=== PATIENT | female | born 1985 | race Two or more races ===

== ENCOUNTER 2016-04-12 22:28 | Emergency (ER) | payer SELFPAY ==
[~2016-04-12] VITALS: Ht 177.8 cm; Wt 58.1 kg
[2016-04-12 22:58] VITALS: BP 127/82
[2016-04-12 23:29] LABS: APPEARANCE,URINE SLIGHTLY CLOUDY; KETONES,URINE 1+ (NEGATIVE); LEUKOCYTE ESTERASE ,URINE 1+ (NEGATIVE); NITRITE,URINE NEGATIVE (NEGATIVE); PH,URINE 5 (4.5-8.0); PROTEIN,URINE 2+ (NEGATIVE); UROBILINOGEN,URINE 1 MG/DL (0.0-1.0)
[2016-04-12 23:30] LABS: BASOPHILS % (AUTO) 1.8 % (0.0-2.0); EOSINOPHILS % (AUTO) 1.2 % (0.0-3.0); LYMPHOCYTES % (AUTO) 33.3 % (20.0-45.0); MEAN CORPUSCULAR HEMOGLOBIN 30.4 PG (27.0-31.0); MEAN CORPUSCULAR HGB CONC 33.6 G/DL (32.0-36.0); MEAN CORPUSCULAR VOLUME 90 FL (80-99); MEAN PLATELET VOLUME 7.7 FL (6.5-10.1); MONOCYTES % (AUTO) 8.5 % (1.0-10.0); NEUTROPHILS % (AUTO) 55.2 % (45.0-75.0); PLATELET COUNT 249 K/UL (150-450); RED BLOOD COUNT 5.02 M/UL (4.20-5.40); RED CELL DISTRIBUTION WIDTH 11.5 % (11.6-14.8); WHITE BLOOD COUNT 6.1 K/UL (4.8-10.8)
[2016-04-12 23:39] LABS: RBC,URINE 0-2 /HPF (0 - 2)
[2016-04-12 23:40] LABS: BACTERIA,URINE MODERATE /HPF; MUCUS,URINE MANY /LPF (NONE/OCC); SQUAMOUS EPITHELIAL CELL,UR FEW /LPF (NONE/OCC)
[2016-04-12 23:42] LABS: ALANINE AMINOTRANSFERASE 13 U/L (3-33); ALBUMIN/GLOBULIN RATIO 1.8 (1.0-2.7); ANION GAP 13 (5-15); ASPARTATE AMINO TRANSFERASE 19 U/L (5-40); CALCIUM 9.3 mg/dL (8.6-10.2); CARBON DIOXIDE 28 mEQ/L (20-30); CHLORIDE 96 mEQ/L (98-107); CREATININE 0.9 mg/dL (0.5-0.9); GLOMERULAR FILTRATION RATE > 60 mL/min (>60); HEMOLYSIS 4; LIPASE 25 U/L (< 60); POTASSIUM 3.8 mEQ/L (3.4-4.9); SODIUM 137 mEQ/L (135-145); TOTAL PROTEIN 7.4 g/dL (6.6-8.7)
[2016-04-13] MEDS ORDERED: DOXYCYCLINE MO100 MG ORAL (00:56)
[2016-04-13] MEDS ORDERED: METRONIDAZOLE500 MG ORAL (00:56)
[2016-04-13 01:00] VITALS: BP 118/73
[2016-04-13 01:05] VITALS: BP 118/73
--- NOTE | 2016-04-13 01:36 | Emergency Room Report ---
History of Present Illness General Chief Complaint: General Complaint Source: Patient Present Illness HPI Patient presents with complaints of vaginal discharge Patient reports that she was at the urgent care earlier today She does present with a letter with further medical input Patient was over the past one month has been having vaginal discharge increased foul smell She reports that recently she also found a retained tampon which she removed Patient denies any back or flank pain Reports having suprapubic discomfort with bilateral pain in that region Patient states that she has as history of lupus , crest syndrome Has had difficulty following up with primary physician at this time secondary to insurance purposes Patient reports that initially she has been sexually active with one partner however there was recent question of other contact by the partner therefore the concern for STD patient reports being checked for GC and Chlamydia, patient also reports check for BV At this time given the vaginal discharge any pelvic discomfort, patient's letter from the urgent care reports concern of possible tubo-ovarian abscess Allergies: Coded Allergies: No Known Allergies (Unverified , 04/12/16) Patient History Past Medical History: see triage record Pertinent Family History: none Last Menstrual Period: 03/22/16 Now: No Reviewed Nursing Documentation: PMH: Agreed, PSxH: Agreed Nursing Documentation-PMH Past Medical History: No History, Except For Hx Hypertension: Yes Hx Cerebrovascular Accident: Yes - 2003 Hx Seizures: Yes - Dec 2015 Review of Systems All Other Systems: negative except mentioned in HPI Physical Exam Vital Signs Date Time Temp Pulse Resp B/P Pulse Ox O2 Delivery O2 Flow Rate FiO2 04/12/16 22:37 97.9 102 16 122/86 99 Room Air Sp02 EP Interpretation: reviewed, normal General Appearance: well appearing, no apparent distress Head: normocephalic, atraumatic Eyes: bilateral eye EOMI, bilateral eye PERRL ENT: hearing grossly normal, normal pharynx, TMs + canals normal, uvula midline Neck: full range of motion, supple, no meningismus, no bony tend Respiratory: lungs clear, normal breath sounds, no rhonchi, no respiratory distress, no retraction, no accessory muscle use Cardiovascular #1: normal peripheral pulses, regular rate, rhythm, no edema, no gallop, no JVD, no murmur Gastrointestinal: normal bowel sounds, non tender, soft, no mass, no organomegaly, non-distended, no guarding, no hernia, no pulsatile mass, no rebound Genitourinary: no CVA tenderness, other - Patient refusing pelvic exam Musculoskeletal: normal inspection Neurologic: oriented x3, responsive, bank worker III-XII nml as tested, motor strength/ tone normal, sensory intact Psychiatric: mood/affect normal Skin: normal color, no rash, warm/dry, palpation normal Lymphatic: normal inspection, no adenopathy Medical Decision Making Diagnostic Impression: Primary Impression: vaginal discharge Additional Impression: PID ER Course And the patient's presentation and exam multiple differentials are considered Patient is complex requiring blood work and imaging Pelvic ultrasound revealed evidence of polycystic ovarian disease, no obvious abscess or free fluid Patient's blood work is at baseline levels Urine sample did show few bacteria At this time given the discharge and the discomfort I felt that a pelvic exam was also standard of care at this time, however the patient states that she had one performed at the urgent care and has had previous ones and is refusing that at this time She is aware that if there is any retained body or other pathology nurse practitioner adult to worsening symptoms and she is refusing that exam at this time Given the clinical history and findings given the ultrasound finding today patient will be treated for possible PID, she reports that she has an appointment with her OB physician tomorrow and I encouraged her to keep that appointment. She did voice concern however over the possible pricing of her referral and states that the likely cost over $1500. I did encourage her for appropriate followup Labs Test 04/12/16 23:21 White Blood Count 6.1 K/UL (4.8-10.8) Red Blood Count 5.02 M/UL (4.20-5.40) Hemoglobin 15.2 G/DL (12.0-16.0) Hematocrit 45.3 % (37.0-47.0) Mean Corpuscular Volume 90 FL (80-99) Mean Corpuscular Hemoglobin 30.4 PG (27.0-31.0) Mean Corpuscular Hemoglobin Concent 33.6 G/DL (32.0-36.0) Red Cell Distribution Width 11.5 % (11.6-14.8) Platelet Count 249 K/UL (150-450) Mean Platelet Volume 7.7 FL (6.5-10.1) Neutrophils (%) (Auto) 55.2 % (45.0-75.0) Lymphocytes (%) (Auto) 33.3 % (20.0-45.0) Monocytes (%) (Auto) 8.5 % (1.0-10.0) Eosinophils (%) (Auto) 1.2 % (0.0-3.0) Basophils (%) (Auto) 1.8 % (0.0-2.0) Urine Color Yellow Urine Appearance Slightly cloudy Urine pH 5 (4.5-8.0) Urine Specific [place] 1.025 (1.005-1.035) Urine Protein 2+ (NEGATIVE) Urine Glucose (UA) Negative (NEGATIVE) Urine Ketones 1+ (NEGATIVE) Urine Occult Blood 1+ (NEGATIVE) Urine Nitrite Negative (NEGATIVE) Urine Bilirubin Negative (NEGATIVE) Urine Urobilinogen 1 MG/DL (0.0-1.0) Urine Leukocyte Esterase 1+ (NEGATIVE) Urine RBC 0-2 /HPF (0 - 2) Urine WBC 5-10 /HPF (0 - 2) Urine Squamous Epithelial Cells Few /LPF (NONE/OCC) Urine Bacteria Moderate /HPF (NONE) Urine Mucus Many /LPF (NONE/OCC) Urine HCG, Qualitative Negative Sodium Level 137 mEQ/L (135-145) Potassium Level 3.8 mEQ/L (3.4-4.9) Chloride Level 96 mEQ/L (98-107) Carbon Dioxide Level 28 mEQ/L (20-30) Anion Gap 13 (5-15) Blood Urea Nitrogen 8 mg/dL (7-23) Creatinine 0.9 mg/dL (0.5-0.9) Estimat Glomerular Filtration Rate > 60 mL/min (>60) Glucose Level 94 mg/dL (74-106) Calcium Level 9.3 mg/dL (8.6-10.2) Total Bilirubin 0.4 mg/dL (0.0-1.2) Aspartate Amino Transf (AST/SGOT) 19 U/L (5-40) Alanine Aminotransferase (ALT/SGPT) 13 U/L (3-33) Alkaline Phosphatase 114 U/L (35-104) Total Protein 7.4 g/dL (6.6-8.7) Albumin 4.8 g/dL (3.5-5.2) Globulin 2.6 g/dL Albumin/Globulin Ratio 1.8 (1.0-2.7) Lipase 25 U/L (< 60) CT/MRI/US Diagnostic Results CT/MRI/US Diagnostic Results : Impression Pelvic ultrasound: No free fluid, polycystic ovary disease Last Vital Signs Date Time Temp Pulse Resp B/P Pulse Ox O2 Delivery O2 Flow Rate FiO2 04/12/16 22:58 97.8 98 15 127/82 99 Room Air Status: improved Disposition: HOME, SELF-CARE Condition: Improved Scripts Metronidazole* (FLAGYL*) 500 Mg Tablet 500 MG ORAL TID, #21 TAB Prov: JANEY CUELLO D.O. 04/13/16 Doxycycline Monohydrate* (DOXYCYCLINE MONOHYDRATE*) 100 Mg Capsule 100 MG ORAL Q12H, #14 CAP 0 Refills Prov: JANEY CUELLO D.O. 04/13/16 Referrals: NOT CHOSEN [facility]/,REFERRING (PCP) Patient Instructions: Pelvic Inflammatory Disease Additional Instructions: Given your diagnosis and the other differentials, pelvic exam is indicated in the emergency room. However you stated that you had one earlier today, and are refusing a pelvic exam at this time. JANEY CUELLO D.O. Apr 13, 2016 01:35
--- NOTE | 2016-04-13 10:31 | Diagnostic Imaging Report ---
Indications: Pelvic pain, LMP 04/22/16 Technique: Transabdominal and transvaginal real-time grayscale and duplex Doppler imaging of the pelvis was performed. Findings: Comparison: None Uterus measures 7.4 x 5.4 x 3.5cm. It demonstrates normal contour and myometrial echotexture without focal abnormality. The endometrial complex measures 10 mm in diameter. It is unremarkable in appearance without obvious focal abnormality. Small cyst is present the cervix. No free fluid is present in the cul-de-sac. Right ovary measures 3.4 x 4.4 x 2.5 cm. It contains a dominant complex cystic structure measuring 2.2 cm, multiple additional smaller peripheral follicles. Duplex Doppler imaging demonstrates normal blood flow. No extra-ovarian abnormality is seen. Left ovary measures 3.2 x 3.2 x 1.7 cm. It contains multiple peripheral follicles. Duplex Doppler imaging demonstrates normal blood flow. No extra-ovarian abnormality is seen. IMPRESSION: 2.2 cm complex cystic structure right ovary, likely physiologic. Cervical nabothian cyst Remainder of exam unremarkable
== END 2016-04-13 01:05 | disposition home or self-care (01) ==
LOC: EMR 22:54
DX: N73.9 Female pelvic inflammatory disease, unspecified (principal); I10 Essential (primary) hypertension; Z86.73 Personal history of transient ischemic attack (TIA), and cerebral infarction without residual deficits; M32.9 Systemic lupus erythematosus, unspecified; M34.1 CR(E)ST syndrome
CPT/HCPCS: 36415; 76830; 76856; 80053; 81003; 81025; 83690; 85025; 87086; 96374

== ENCOUNTER 2017-06-11 06:11 | Emergency (ER) | payer SELFPAY ==
[~2017-06-11] VITALS: Ht 180.3 cm; Wt 60.8 kg
[~2017-06-11 06:11] MED LIST: DOXYCYCLINE MO100 MG ORAL; METRONIDAZOLE500 MG ORAL
[2017-06-11] MEDS ORDERED: Ampicillin/Sulbactam Sod 3 GM in NS 110 ML IVPB ONE (07:00)
[2017-06-11 07:15] VITALS: BP 128/81
[2017-06-11] MEDS ORDERED: Unasyn 3gm Inj ONE (07:16)
[2017-06-11 07:25] LABS: BASOPHILS % (AUTO) 1.4 % (0.0-2.0); EOSINOPHILS % (AUTO) 0.8 % (0.0-3.0); HEMATOCRIT 35.7 % (37.0-47.0); HEMOGLOBIN 12.6 G/DL (12.0-16.0); LYMPHOCYTES % (AUTO) 17.4 % (20.0-45.0); MEAN CORPUSCULAR VOLUME 85 FL (80-99); MONOCYTES % (AUTO) 8.4 % (1.0-10.0); NEUTROPHILS % (AUTO) 71.9 % (45.0-75.0); PLATELET COUNT 254 K/UL (150-450); RED BLOOD COUNT 4.19 M/UL (4.20-5.40); RED CELL DISTRIBUTION WIDTH 11.5 % (11.6-14.8)
[2017-06-11 07:27] LABS: ANION GAP 7 mmol/L (5-15); BLOOD UREA NITROGEN 12 mg/dL (7-18); CALCIUM 8.8 MG/DL (8.5-10.1); CARBON DIOXIDE 30 MMOL/L (21-32); CHLORIDE 103 MMOL/L (98-107); CREATININE 0.8 MG/DL (0.55-1.30); SODIUM 140 MMOL/L (136-145)
[2017-06-11 07:31] LABS: ALANINE AMINOTRANSFERASE 23 U/L (12-78); ALBUMIN/GLOBULIN RATIO 1.2 (1.0-2.7); ALKALINE PHOSPHATASE 97 U/L (46-116); ASPARTATE AMINO TRANSFERASE 23 U/L (15-37); BILIRUBIN,TOTAL 0.8 MG/DL (0.2-1.0)
--- NOTE | 2017-06-11 08:03 | Emergency Room Report ---
History of Present Illness General Chief Complaint: General Complaint Source: Patient Present Illness HPI 31-year-old female presents ED complaining of right-sided mouth pain. States starting yesterday she noted pain and swelling to her right side of face. Patient has had previous dental infections. Denies fevers or chills. Notes pain, throbbing, 8 out of 10. Patient states there is increased swelling to the right side of her face. Patient states she has autoimmune deficiency, is concerned that the infection is "spreading to the brain". Was told by a dentist that she needs to come to ER first. Patient also states that she is currently having a miscarriage. Bleeding. Currently being followed by [facility]. Denies abdominal pain nausea or vomiting. Denies headaches. Denies neck stiffness. No other aggravating relieving factors. Denies any other associated symptoms Allergies: Coded Allergies: No Known Allergies (Unverified , 04/12/16) Patient History Past Medical History: HTN, CVA/TIA Past Surgical History: none Pertinent Family History: none Social History: Denies: smoking, alcohol use, drug use Last Menstrual Period: unk Now: No Immunizations: UTD Reviewed Nursing Documentation: PMH: Agreed; PSxH: Agreed Nursing Documentation-PMH Hx Hypertension: Yes Hx Cerebrovascular Accident: Yes - 2003 Hx Seizures: Yes - Dec 2015 Review of Systems All Other Systems: negative except mentioned in HPI Physical Exam Vital Signs Date Time Temp Pulse Resp B/P (MAP) Pulse Ox O2 Delivery O2 Flow Rate FiO2 06/11/17 06:17 98.0 96 18 131/87 97 Room Air 98.1 Sp02 EP Interpretation: reviewed, normal General Appearance: no apparent distress, alert, GCS 15, non-toxic Head: normocephalic Eyes: bilateral eye normal inspection, bilateral eye PERRL ENT: hearing grossly normal, normal pharynx, no angioedema, normal voice, other - dental caries noted Neck: full range of motion, no meningismus, no bony tend, supple/symm/no masses Respiratory: chest non-tender, lungs clear, normal breath sounds, speaking full sentences Cardiovascular #1: regular rate, rhythm, no edema Gastrointestinal: normal inspection Rectal: deferred Genitourinary: no CVA tenderness Musculoskeletal: normal inspection Neurologic: alert, oriented x3, responsive, motor strength/tone normal, sensory intact, speech normal Psychiatric: normal inspection Skin: other - swelling to R side of face. no induration. no fluctuance or discharge Lymphatic: normal inspection Medical Decision Making Diagnostic Impression: Primary Impression: Facial cellulitis Additional Impression: Dental abscess ER Course Hospital Course 31-year-old female presents ED complaining of right facial pain and swelling Differential diagnosis includes- abscess, cellulitis, allergic reaction Clinical course Patient placed on stretcher. After initial history and physical I ordered labs , IV fluids, CT Facial Bones Labs - no leukocytosis, electrolytes ok, LFTs normal, UA unremarkable CT facial bones shows apical abscess 1st maxillary molar with facial cellulitis. no extension into sinuses Patient given IV pain meds. IV antibiotics. Discussed findings with patient. I offered option for admission but patient declined. Close follow-up with PMD. Recommend seeing dentist this week for tooth extraction I feel this is a highly complex case requiring extensive working including EKG/ Rhythm strip, Xray/CT/US, Blood/urine lab work, repeat exams while in ED, and administration of strong opiates/narcotics for pain control, admission to hospital or close patient follow up. Diagnosis - facial cellulitis, dental abscess Stable and discharged to home with Rx augmentin, percocet, prednisone. Followup with PMD/dentist. Return to ED if symptoms recur or worsen Labs Test 06/11/17 06:45 White Blood Count 7.0 K/UL (4.8-10.8) Red Blood Count 4.19 M/UL (4.20-5.40) Hemoglobin 12.6 G/DL (12.0-16.0) Hematocrit 35.7 % (37.0-47.0) Mean Corpuscular Volume 85 FL (80-99) Mean Corpuscular Hemoglobin 30.2 PG (27.0-31.0) Mean Corpuscular Hemoglobin Concent 35.4 G/DL (32.0-36.0) Red Cell Distribution Width 11.5 % (11.6-14.8) Platelet Count 254 K/UL (150-450) Mean Platelet Volume 7.9 FL (6.5-10.1) Neutrophils (%) (Auto) 71.9 % (45.0-75.0) Lymphocytes (%) (Auto) 17.4 % (20.0-45.0) Monocytes (%) (Auto) 8.4 % (1.0-10.0) Eosinophils (%) (Auto) 0.8 % (0.0-3.0) Basophils (%) (Auto) 1.4 % (0.0-2.0) Sodium Level 140 MMOL/L (136-145) Potassium Level 3.0 MMOL/L (3.5-5.1) Chloride Level 103 MMOL/L (98-107) Carbon Dioxide Level 30 MMOL/L (21-32) Anion Gap 7 mmol/L (5-15) Blood Urea Nitrogen 12 mg/dL (7-18) Creatinine 0.8 MG/DL (0.55-1.30) Estimat Glomerular Filtration Rate > 60 mL/min (>60) Glucose Level 110 MG/DL (74-106) Lactic Acid Level 0.60 mmol/L (0.66-2.22) Calcium Level 8.8 MG/DL (8.5-10.1) Total Bilirubin 0.8 MG/DL (0.2-1.0) Aspartate Amino Transf (AST/SGOT) 23 U/L (15-37) Alanine Aminotransferase (ALT/SGPT) 23 U/L (12-78) Alkaline Phosphatase 97 U/L (46-116) Total Protein 7.4 G/DL (6.4-8.2) Albumin 4.0 G/DL (3.4-5.0) Globulin 3.4 g/dL Albumin/Globulin Ratio 1.2 (1.0-2.7) CT/MRI/US Diagnostic Results CT/MRI/US Diagnostic Results : Imaging Test Ordered: CT Facial Impression Mild edema of the right malar region subcutaneous fat. There is a clinical history, likely on the basis of cellulitis. No evidence of abscess. Apical root abscess of the right first maxillary molar. Last Vital Signs Date Time Temp Pulse Resp B/P (MAP) Pulse Ox O2 Delivery O2 Flow Rate FiO2 06/11/17 07:15 98.1 72 18 128/81 99 Room Air 98.1 Status: improved Disposition: HOME, SELF-CARE Condition: Stable Scripts Amoxicillin/Potassium Clav 875-125* (AUGMENTIN 875-125 TABLET*) 1 Each Tablet 1 TAB ORAL TWICE A DAY for 10 Days, #20 TAB Prov: Jw Rothman MD 06/11/17 Oxycodone/Acetaminophen 5-325* (PERCOCET 5-325 MG TABLET*) 1 Each Tablet 1 TAB ORAL Q4H PRN for For Pain, #15 TAB 0 Refills Prov: Jw Rothman MD 06/11/17 Prednisone* (PREDNISONE*) 20 Mg Tablet 60 MG ORAL DAILY for 5 Days, #15 TAB Prov: Jw Rothman MD 06/11/17 Referrals: NOT CHOSEN [facility]/,REFERRING (PCP) Jw Rothman MD Jun 11, 2017 08:03
--- NOTE | 2017-06-11 09:41 | Diagnostic Imaging Report ---
Indication: Facial pain and swelling, right-sided mouth pain Technique: IV administration nonionic contrast Spiral acquisitions obtained through the Multiplanar reconstructions were generated. Total dose length product 122.14 mGycm. CTDIvol(s) 28.19 mGy. Radiation dose was minimized using automated exposure control Comparison: none Findings: There is soft tissue swelling of the right malar region subcutaneous fat. No fluid collection demonstrated. There is an apical root abscess of the right first maxillary molar. There is some thinning of the cortex above the root. There is right maxillary sinus mucosal thickening. The remainder of the dentition is intact except for evidence of a prior left mandibular molar extraction. The remainder the sinuses are clear. The nasal septum is midline. No other significant soft tissue swelling demonstrated. The parapharyngeal spaces are clear. No cervical mass or adenopathy. The orbits and optic globes are unremarkable. The included intracranial structures are unremarkable. Impression: Mild edema of the right malar region subcutaneous fat. There is a clinical history, likely on the basis of cellulitis. No evidence of abscess. Apical root abscess of the right first maxillary molar. Possibly but not definitively the source of the above The CT scanner at [facility] is accredited by the [employer] and the scans are performed using protocols designed to limit radiation exposure to as low as reasonably achievable to attain images of sufficient resolution adequate for diagnostic evaluation.
[2017-06-11 09:54] LABS: APPEARANCE,URINE CLEAR; BILIRUBIN, URINE NEGATIVE (NEGATIVE); COLOR,URINE PALE YELLOW; GLUCOSE, URINE (UA) NEGATIVE (NEGATIVE); KETONES,URINE 1+ (NEGATIVE); LEUKOCYTE ESTERASE ,URINE 1+ (NEGATIVE); NITRITE,URINE NEGATIVE (NEGATIVE); PH,URINE 6.5 (4.5-8.0); PROTEIN,URINE NEGATIVE (NEGATIVE); UROBILINOGEN,URINE NORMAL MG/DL (0.0-1.0)
[2017-06-11 10:04] VITALS: BP 129/87
[2017-06-11] MEDS ORDERED: PERCOCET 5-3251 EACH ORAL (10:04)
[2017-06-11] MEDS ORDERED: PREDNISONE20 MG ORAL (10:04)
[2017-06-11] MEDS ORDERED: AUGMENTIN 875-1 EAC1 ORAL ×2 (10:04→10:10)
[2017-06-11] MEDS ORDERED: Morphine Sulfate 4mg/ml Inj ONE (10:08)
[2017-06-11] MEDS ORDERED: Morphine Sulfate 4mg/ml Inj IVP ONE (10:15)
[2017-06-11 10:25] VITALS: BP 129/87
== END 2017-06-11 10:28 | disposition home or self-care (01) ==
LOC: EMR 06:50
DX: L03.211 Cellulitis of face (principal); K04.7 Periapical abscess without sinus; I10 Essential (primary) hypertension; Z86.73 Personal history of transient ischemic attack (TIA), and cerebral infarction without residual deficits; Z86.69 Personal history of other diseases of the nervous system and sense organs
CPT/HCPCS: 36415; 70488; 80053; 81003; 81025; 83605; 85025; 87040; 96374; 96375; 99284; J0295; J2270; Q9967

== ENCOUNTER 2018-09-07 00:59 | Inpatient (IN) | payer MEDICAID ==
[~2018-09-07] VITALS: Ht 180.3 cm; Wt 59.0 kg
[~2018-09-07 00:59] MED LIST changes: +AUGMENTIN 875-1 EAC1 ORAL; +PERCOCET 5-3251 EACH ORAL; +PREDNISONE20 MG ORAL
[2018-09-07 01:10] VITALS: BP 137/86
--- NOTE | 2018-09-07 01:10 | NUR ---
ED Nurse Note: Received report. Pt from home, AAOx4, ambulatory, c/o RLQ abdominal and lower back pain 12/19. Will assess and carry out ER MD"s orders.
[2018-09-07] MEDS ORDERED: fentaNYL 100 mcg/2 mL IV ONE (01:45)
[2018-09-07] MEDS ORDERED: Isovue-300 100ml vial INJ PRN (01:45)
--- NOTE | 2018-09-07 01:50 | Emergency Room Report ---
History of Present Illness General Chief Complaint: Pain Source: Patient Present Illness HPI The patient presents with right flank and abdominal pain that is worsened over the last 2 days. She did a home UTI test that was positive. She took a dose of Augmentin and was using cranberry juice. The dysuria is stopped however the pain now is in her right flank. He comes in waves occasionally. Today she also felt drenched with sweat. It may have been related to taking aspirin. The pain is intermittent and currently 6/10 aching. Last period was normal. She also had a purulent discharge earlier today. She recently underwent an induced due to the fact she has lupus and antibodies (antiphospholipid?) The patient has a history of lupus. She has had nephritis in the past. Usually when she has a lupus flare she breaks out in the malar rash. This does not happen this time. She is not taking any immune suppressants. The patient has a history of pulmonary embolus. Her treatment is a baby aspirin a day. There is no chest pain at this time, hemoptysis or productive cough. 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 Now: No Reviewed Nursing Documentation: PMH: Agreed; PSxH: Agreed Nursing Documentation-PMH Hx Hypertension: Yes Hx Cerebrovascular Accident: Yes - 2003 Hx Seizures: Yes - Dec 2015 Review of Systems All Other Systems: negative except mentioned in HPI Physical Exam Vital Signs Date Time Temp Pulse Resp B/P (MAP) Pulse Ox O2 Delivery O2 Flow Rate FiO2 09/07/18 01:06 98.1 119 18 137/86 (103) 100 Room Air Sp02 EP Interpretation: reviewed, normal General Appearance: well appearing, no apparent distress, GCS 15 Head: normocephalic Eyes: bilateral eye normal inspection ENT: moist mucus membranes Neck: supple Respiratory: lungs clear, normal breath sounds Cardiovascular #1: regular rate, rhythm Cardiovascular #2: 2+ radial (R) Gastrointestinal: normal inspection, normal bowel sounds, no mass, non- distended, no rebound, guarding, tenderness Genitourinary: CVA tenderness (R) Musculoskeletal: back normal, gait/station normal, normal range of motion Neurologic: alert, oriented x3, grossly normal Psychiatric: mood/affect normal Skin: other - Tattoos Medical Decision Making Diagnostic Impression: Primary Impression: Pyelonephritis Additional Impressions: Lupus Hemorrhagic cyst of right ovary Vaginal discharge ER Course Patient with a history of lupus presents with right flank pain. Differential includes pyelonephritis, renal stone, appendicitis, gastroenteritis, diverticulitis amongst others. She will be evaluated with EKG, CT of the abdomen and pelvis and labs. The patient will be treated with IV hydration, Zofran and fentanyl. There will be a low threshold for starting antibiotics. Lactate will be ordered. Sample of vaginal d/c sent to lab. EKG no injury. No leukocytosis. Sed rate and C reactive protein elevated. Low potassium. Pyuria. CT abdomen/pelvis - bilateral renal stranding. Hemorrhagic cyst. Hypervascularity of endometrial cavity. Antibiotics begun. Improved with analgesia and hydration but still with pain. Admit med for IV antibiotics. Laboratory Tests Test 09/07/18 02:14 White Blood Count 7.4 K/UL (4.8-10.8) Red Blood Count 4.55 M/UL (4.20-5.40) Hemoglobin 12.5 G/DL (12.0-16.0) Hematocrit 37.7 % (37.0-47.0) Mean Corpuscular Volume 83 FL (80-99) Mean Corpuscular Hemoglobin 27.4 PG (27.0-31.0) Mean Corpuscular Hemoglobin Concent 33.1 G/DL (32.0-36.0) Red Cell Distribution Width 12.8 % (11.6-14.8) Platelet Count 271 K/UL (150-450) Mean Platelet Volume 7.4 FL (6.5-10.1) Neutrophils (%) (Auto) 60.5 % (45.0-75.0) Lymphocytes (%) (Auto) 26.4 % (20.0-45.0) Monocytes (%) (Auto) 10.4 % (1.0-10.0) H Eosinophils (%) (Auto) 1.4 % (0.0-3.0) Basophils (%) (Auto) 1.3 % (0.0-2.0) Erythrocyte Sedimentation Rate 30 MM/HR (0-20) H Prothrombin Time 10.2 SEC (9.30-11.50) Prothrombin Time INR 1.0 (0.9-1.1) PTT 30 SEC (23-33) Urine Color Pale yellow Urine Appearance Slightly cloudy Urine pH 5 (4.5-8.0) Urine Specific [place] 1.020 (1.005-1.035) Urine Protein 2+ (NEGATIVE) H Urine Glucose (UA) Negative (NEGATIVE) Urine Ketones 1+ (NEGATIVE) H Urine Blood 2+ (NEGATIVE) H Urine Nitrite Negative (NEGATIVE) Urine Bilirubin Negative (NEGATIVE) Urine Urobilinogen Normal MG/DL (0.0-1.0) Urine Leukocyte Esterase 1+ (NEGATIVE) H Urine RBC 10-15 /HPF (0 - 2) H Urine WBC 15-20 /HPF (0 - 2) H Urine Squamous Epithelial Cells Moderate /LPF (NONE/OCC) H Urine Bacteria Moderate /HPF (NONE) H Urine HCG, Qualitative Negative (NEGATIVE) Sodium Level 139 MMOL/L (136-145) Potassium Level 3.1 MMOL/L (3.5-5.1) L Chloride Level 101 MMOL/L (98-107) Carbon Dioxide Level 30 MMOL/L (21-32) Anion Gap 8 mmol/L (5-15) Blood Urea Nitrogen 7 mg/dL (7-18) Creatinine 1.0 MG/DL (0.55-1.30) Estimate Glomerular Filtration Rate > 60 mL/min (>60) Glucose Level 98 MG/DL (74-106) Lactic Acid Level 0.50 mmol/L (0.4-2.0) Calcium Level 9.0 MG/DL (8.5-10.1) Total Bilirubin 0.4 MG/DL (0.2-1.0) Aspartate Amino Transferase (AST) 16 U/L (15-37) Alanine Aminotransferase (ALT) 16 U/L (12-78) Alkaline Phosphatase 118 U/L (46-116) H Total Creatine Kinase 62 U/L (26-308) C-Reactive Protein, Quantitative 2.7 mg/dL (0.00-0.90) H Total Protein 6.9 G/DL (6.4-8.2) Albumin 3.9 G/DL (3.4-5.0) Globulin 3.0 g/dL Albumin/Globulin Ratio 1.3 (1.0-2.7) Lipase 139 U/L (73-393) EKG Diagnostic Results Rate: tachycardiac Rhythm: NSR ST Segments: no acute changes Rhythm Strip Diag. Results EP Interpretation: yes Rhythm: NSR, no PVC's, no ectopy CT/MRI/US Diagnostic Results CT/MRI/US Diagnostic Results : Imaging Test Ordered: abd/pelvis Impression 1. Mild bilateral perirenal stranding of the rachel that could reflect sequela of urinary tract infection. Correlate clinically 2. Hemorrhagic right ovarian cyst. Correlate with status and consider follow-up pelvic ultrasound in 6 weeks. 3. Hypervascularity to the right-sided endometrial cavity is of uncertain significance. Correlate with the clinical history and consider follow-up. Last Vital Signs Date Time Temp Pulse Resp B/P (MAP) Pulse Ox O2 Delivery O2 Flow Rate FiO2 09/07/18 08:00 97.9 74 18 114/80 (91) 100 09/07/18 07:40 Room Air Status: improved Disposition: ADMITTED INPATIENT Condition: Serious Jesse Hinojosa MD Sep 07, 2018 01:50
[2018-09-07 02:34] LABS: APPEARANCE,URINE SLIGHTLY CLOUDY; BILIRUBIN, URINE NEGATIVE (NEGATIVE); COLOR,URINE PALE YELLOW; GLUCOSE, URINE (UA) NEGATIVE (NEGATIVE); KETONES,URINE 1+ (NEGATIVE); LEUKOCYTE ESTERASE ,URINE 1+ (NEGATIVE); NITRITE,URINE NEGATIVE (NEGATIVE); PH,URINE 5 (4.5-8.0); PROTEIN,URINE 2+ (NEGATIVE); UROBILINOGEN,URINE NORMAL MG/DL (0.0-1.0)
[2018-09-07 02:39] LABS: BASOPHILS % (AUTO) 1.3 % (0.0-2.0); EOSINOPHILS % (AUTO) 1.4 % (0.0-3.0); HEMATOCRIT 37.7 % (37.0-47.0); HEMOGLOBIN 12.5 G/DL (12.0-16.0); LYMPHOCYTES % (AUTO) 26.4 % (20.0-45.0); MEAN CORPUSCULAR VOLUME 83 FL (80-99); MONOCYTES % (AUTO) 10.4 % (1.0-10.0); NEUTROPHILS % (AUTO) 60.5 % (45.0-75.0); PLATELET COUNT 271 K/UL (150-450); RED BLOOD COUNT 4.55 M/UL (4.20-5.40); RED CELL DISTRIBUTION WIDTH 12.8 % (11.6-14.8); WHITE BLOOD COUNT 7.4 K/UL (4.8-10.8)
[2018-09-07 02:41] LABS: ANION GAP 8 mmol/L (5-15); BLOOD UREA NITROGEN 7 mg/dL (7-18); CARBON DIOXIDE 30 MMOL/L (21-32); CHLORIDE 101 MMOL/L (98-107); POTASSIUM 3.1 MMOL/L (3.5-5.1); SODIUM 139 MMOL/L (136-145)
[2018-09-07 02:47] LABS: ALANINE AMINOTRANSFERASE 16 U/L (12-78); ALBUMIN 3.9 G/DL (3.4-5.0); ALBUMIN/GLOBULIN RATIO 1.3 (1.0-2.7); ALKALINE PHOSPHATASE 118 U/L (46-116); ASPARTATE AMINO TRANSFERASE 16 U/L (15-37); BILIRUBIN,TOTAL 0.4 MG/DL (0.2-1.0); CREATINE KINASE 62 U/L (26-308)
[2018-09-07] MEDS ORDERED: cefTRIAXone 1 GM in NS 55 ML IVPB ONE (03:45)
--- NOTE | 2018-09-07 04:10 | NUR ---
er roomED Nurse Note: Accidentally pulled out meds under JOSÉ SMITH's name when the certified medical aide staff had to add all ER patient's names into Pyxis as temps in order to retrieve the meds. I pulled out Sublimaze 25 mcg IV, Zofran 4mg ODT and K-Dur 40 mEq PO incorrectly under this current pt's name but because of the scan meds protocol, the correct meds were still given to the correct pts. Only the Pyxis was incorrectly accounted for.
--- NOTE | 2018-09-07 04:14 | Diagnostic Imaging Report ---
EXAM: CT Abdomen and Pelvis With Intravenous Contrast CLINICAL HISTORY: ABD PAIN TECHNIQUE: Axial computed tomography images of the abdomen and pelvis with intravenous contrast. CTDI is 11.81 mGy and DLP is 568 mGy-cm. One or more of the following dose reduction techniques were used: automated exposure control, adjustment of the mA and/or kV according to patient size, use of iterative reconstruction technique. COMPARISON: none FINDINGS: Lung bases: Unremarkable. No mass. No consolidation. ABDOMEN: Liver: Unremarkable. No mass. Gallbladder and bile ducts: Unremarkable. No calcified stones. No ductal dilation. Pancreas: Unremarkable. No mass. No ductal dilation. Spleen: Unremarkable. No splenomegaly. Adrenals: Unremarkable. No mass. Kidneys and ureters: Mild bilateral soft tissue stranding in the renal rachel without overt hydronephrosis. Stomach and bowel: Unremarkable. No obstruction. No mucosal thickening. PELVIS: Appendix: No findings to suggest acute appendicitis. Bladder: Unremarkable. No mass. Reproductive: Right 3.9 cm adnexal cyst with a fluid/fluid level. There is hypervascularity to the right-sided aspect of the endometrial cavity. ABDOMEN and PELVIS: Intraperitoneal space: Unremarkable. No free air. No significant fluid collection. Bones/joints: No acute fracture. No dislocation. Soft tissues: Unremarkable. Vasculature: Unremarkable. No abdominal aortic aneurysm. Lymph nodes: Unremarkable. No enlarged lymph nodes. IMPRESSION: 1. Mild bilateral perirenal stranding of the rachel that could reflect sequela of urinary tract infection. Correlate clinically 2. Hemorrhagic right ovarian cyst. Correlate with status and consider follow-up pelvic ultrasound in 6 weeks. 3. Hypervascularity to the right-sided endometrial cavity is of uncertain significance. Correlate with the clinical history and consider follow-up.
[2018-09-07] MEDS ORDERED: Miralax 17gm pkt ORAL PRN ×2 (05:45→10:30)
[2018-09-07] MEDS ORDERED: Albuterol/Ipratropium 3ml neb HHN PRN ×2 (05:45→10:30)
[2018-09-07] MEDS ORDERED: Morphine Sulfate 2mg/ml Inj(IV/IM USE ONLY) IVP PRN (05:45)
--- NOTE | 2018-09-07 05:49 | NUR ---
Note gloria in EDM - 09/07/18 at 0551 by FRANSICO ED Nurse Note: Received report. Pt from home, AAOx4, ambulatory, c/o RLQ abdominal and lower back pain 12/19. Will assess and carry out ER MD"s orders.
[2018-09-07 07:20] VITALS: BP 126/82
--- NOTE | 2018-09-07 07:20 | NUR ---
ED Nurse Note: REPORT RECEIVED FROM MARLA VELAZQUEZ. PT LAYING PEACEFULLY IN BED IN NAD. AOX4. [facility] CALLED FOR PT REPORT. RN NOT ASSIGNED TO PT YET. CHARGE NURSE WILL CALL BACK ONCE ASSIGNMENT IS GIVEN TO RN.
--- NOTE | 2018-09-07 07:41 | NUR ---
ED Nurse Note: [facility] CALLED FOR PT REPORT. REPORT GIVEN TO MARLA REDMOND. PT TAKEN UP TO [facility] VIA GURNEY WITH ALL BELONGINGS ACCOMPANIED BY EMT. VSS.
[2018-09-07 08:00] VITALS: BP 114/80
[2018-09-07] MEDS ORDERED: Vancomycin 1 GM in D5W 275 ML IVPB ONE (08:00)
--- NOTE | 2018-09-07 08:30 | NUR ---
NURSE NOTES: PT AXOX4, ANXIOUS AND RESTLESS IN BED. STATES SHE HAS PAIN AND HAS SEVERAL COMPLAINTS "I HAVE PUS IN MY KIDNEYS AND I DON'T UNDERSTAND WHY I'M NOT GETTING MY ANTIBIOTICS! I'M NOT EVEN ON IV FLUIDS, I MEAN THIS SHIT IS SO BASIC! DO I HAVE TO GOOGLE EVERYTHING FOR YOU GUYS?!". PT WAS EDUCATED ON SCHEDULED ANTIBIOTICS AND PLAN OF CARE. PT WAS EDUCATED ON SCHEDULED MEDS AND ANTIBIOTICS. PT STATES SHE IS ALLERGIC TO MORPHINE. RN LEFT MESSAGE FOR DR VELOZ REGARDING PAIN MEDICATION AND MORPHINE ALLERGY.
[2018-09-07] MEDS ORDERED: Heparin 5000 units/ml inj SUBQ SCH (09:00)
--- NOTE | 2018-09-07 10:30 | NUR ---
NURSE NOTES: DR KNOX WAS AT BEDSIDE AND MADE AWARE OF PT'S ALLERGY TO MORPHINE AND REQUEST FOR ANOTHER PAIN MEDICATION. DR KNOX WITH ORDER TO D/C MORPHINE AND HE WILL TAKE A LOOK AT HER CHART. DR KNOX LEFT THE UNIT WITH NO NEW ORDERS. RN CONTACTED DR KNOX, WITH ORDER TO CONTACT DR THOMAS FOR PAIN MEDICATION FOR ABDOMEN. RN LEFT MESSAGE FOR DR THOMAS REGARDING NEW CONSULT FOR ABDOMINAL PAIN.
[2018-09-07] MEDS: Cefepime HCl 2 GM in D5W 110 ML IV SCH ×2 (10:42→20:03)
[2018-09-07] MEDS: Heparin 5000 units/ml inj SUBQ SCH ×2 (10:42→20:54)
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
[2018-09-07 12:00] VITALS: BP 110/70
--- NOTE | 2018-09-07 13:30 | History and Physical Report ---
DATE OF ADMISSION: 09/07/2018 TIME SEEN: At 9 a.m. CONSULTANTS: 1. Christina Batres M.D. 2. Alex Ashford M.D. CHIEF COMPLAINT: Dysuria and pyelonephritis. BRIEF HISTORY: This is a 33-year-old female, who two days ago started having some pain with urination, the area has became painful. The patient came to [place], diagnosed with the above, and admitted to medical floor. Currently, sleeping in bed, slight lower abdominal pain. No complaint. REVIEW OF SYSTEMS: No chest pain. No shortness of breath. No nausea, vomiting, or diarrhea. PAST MEDICAL HISTORY: Include lupus. PAST SURGICAL HISTORY: Unknown. MEDICATIONS: Include vancomycin, cefepime, heparin, albuterol, Tylenol, Zofran, and temazepam. ALLERGIES: Morphine. SOCIAL HISTORY: Positive smoke. Occasional alcohol. Positive marijuana use. OBJECTIVE: GENERAL: Sleeping in bed, oriented x2, in no acute distress. VITAL SIGNS: Temperature 97 degrees, pulse 74, respirations 18, blood pressure 114/80. CARDIOVASCULAR: No murmur. LUNGS: Distant and clear. ABDOMEN: Positive bowel sounds. Nontender. Nondistended. EXTREMITIES: Show no cyanosis or edema. NEUROLOGIC: The patient moves all extremities, slightly weak. LABORATORY AND DIAGNOSTIC DATA: CBC is normal. ESR is 30. BMP show potassium 3.1, alkaline phosphatase 112, C-reactive protein 2.7, otherwise BMP is normal. INR is 1.0. PTT is 30. Urinalysis show 1+ leukocyte esterase, 2+ protein. ASSESSMENT: 1. Pyelonephritis. 2. History of lupus. 3. Dysuria. PLAN: 1. Antibiotics per Infectious Disease. 2. IV fluids. 3. Dietary followup. 4. CBC and BMP in the morning. Brian Solano D.O. DR: MARY JOB#: [id number] CC:
--- NOTE | 2018-09-07 14:28 | NUR ---
NURSE NOTES: NO ANSWER FROM DR THOMAS. DR BAUTISTA AT BEDSIDE, COVERING FOR DR THOMAS. DR BAUTISTA MADE AWARE OF ABDOMINAL PAIN AND PT'S REQUEST FOR PAIN MEDICATION. DR BAUTISTA WITH NO NEW ORDERS. RN LEFT MESSAGE FOR DR KNOX AND DR VELOZ, REGARDING NO PAIN MEDS PRESCRIBED BY DR BAUTISTA BUT PT STILL REQUESTING FOR PAIN MEDICATION.
--- NOTE | 2018-09-07 14:30 | NUR ---
NURSE NOTES: PT IS AXOX4, CALM ADN RESTING IN BED. PT ASKED RN WHY SHE ISN'T GETTING IV ANTIBIOTICS AROUND THE CLOCK. PT STATES SHE REQUESTED FROM DR GARCÍA "FOE ALL THE ANTIBIOTICS TO KILL WHATEVER IS GOING ON". RN EDUCATED PT ON SCHEDULED IV ANTIBIOTICS. PT REPLIED "I SWEAR IF I'M WASTING MY TIME HERE, I'M GOING TO LEAVE. 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 RN EDUCATED PT ON LEAVING AMA. PT STATES SHE MIGHT LEAVE IN 1 HOUR.
--- NOTE | 2018-09-07 14:59 | NUR ---
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
[2018-09-07 16:00] VITALS: BP 103/78
[2018-09-07] MEDS ORDERED: Tubing IV Secondary IV ONE (16:44)
[2018-09-07] MEDS ORDERED: NS 500ML ONE (16:44)
[2018-09-07] MEDS ORDERED: Ketorolac 30mg Inj IV PRN (16:45)
--- NOTE | 2018-09-07 17:04 | NUR ---
CASE MANAGEMENT: INITIAL REVIEW 33 YO F PRESENTED TO OUR ED FROM HOME CC: BACK PAIN PMHx: HTN. CVA. SZ. SI:PYELONEPHRITIS. LUPUS. T 98.4 HR 119 RR 18 B/P 137/86 SATS 100% ON RA K 3.1 ALP 118 IS: NS BOLUS X2 ZOFRAN IV X1 FENTANYL IV X1 PATIENT ADMITTED TO MED/SURG 09/07/2018 @ 0820 DCP: PATIENT TO BE DISCHARGED TO HOME ONCE MEDICALLY CLEARED. PLAN OF CARE: 1. Antibiotics per Infectious Disease. 2. IV fluids. Addendum: 09/10/18 at 1341 by Ely Humphreys INTERQUAL MET
--- NOTE | 2018-09-07 19:08 | NUR ---
HAND-OFF: Report given to Ramakrishna CHANDLER RN.
[2018-09-07 20:00] VITALS: BP 117/77
[2018-09-07] MEDS ORDERED: Vancomycin 750mg/NS 275ml IVPB SCH ×2 (20:00)
[2018-09-07 21:12] LABS: APPEARANCE,URINE CLEAR; BILIRUBIN, URINE NEGATIVE (NEGATIVE); COLOR,URINE PALE YELLOW; GLUCOSE, URINE (UA) NEGATIVE (NEGATIVE); KETONES,URINE NEGATIVE (NEGATIVE); LEUKOCYTE ESTERASE ,URINE NEGATIVE (NEGATIVE); NITRITE,URINE NEGATIVE (NEGATIVE); PH,URINE 6.5 (4.5-8.0); PROTEIN,URINE NEGATIVE (NEGATIVE); UROBILINOGEN,URINE NORMAL MG/DL (0.0-1.0)
--- NOTE | 2018-09-07 23:30 | Consultation ---
DATE OF CONSULTATION: 09/07/2018 GASTROENTEROLOGY CONSULTATION REPORT CONSULTING PHYSICIAN: Simona Knott M.D. CHIEF COMPLAINT: "I was asked to see this patient by Dr. Brian Solano for evaluation of abdominal symptoms." HISTORY OF PRESENT ILLNESS: The patient is a 33-year-old white woman, who comes in with a few days history of worsening flank pain and abdominal pain and dysuria. The patient complains of bilateral flank pain and then it is improved with antibiotics, but now she has abdominal pain. She recently had a D and C procedure for unwanted in July. Subsequently, she had been sexually active and took two doses of a morning after pill about a week ago. Her test on this admission was negative. She also had a CT scan of the abdomen and pelvis showing inflammatory changes consistent with her urinary tract infection and also some changes of the uterus. The patient denies any vomiting, but does have some diarrhea. She has had a past history of lupus but she is not on any medications for it. PAST MEDICAL HISTORY: History of lupus, history of nephritis, history of pulmonary embolism, traumatic brain injury, history of facial cellulitis. FAMILY HISTORY: Noncontributory. SOCIAL HISTORY: The patient smokes and drinks alcohol. She is single. MEDICATIONS: See chart list for details. ALLERGIES: Morphine. REVIEW OF SYSTEMS: Otherwise negative. PHYSICAL EXAMINATION: GENERAL: A well-developed, well-nourished white woman, seen in her room. HEENT: Normocephalic and atraumatic. Sclerae anicteric. Oropharynx clear. NECK: Supple. CHEST: Clear to auscultation. CARDIOVASCULAR: Revealed a regular rate. ABDOMEN: Soft with mild diffuse tenderness to palpation without guarding or rebound. No masses. EXTREMITIES: Revealed no edema. LABORATORY DATA: Noted. ASSESSMENT: This patient presents with abdominal pain as well as flank pain and dysuria. Given the imaging findings and the urinalysis, I suspect that most of her symptoms are related to her pyelonephritis. Given that she has diarrhea, I will check her stool for occult blood as well as cultures and Clostridium difficile. She can be managed conservatively unless the laboratory values come back positive. She can be given warm packs for abdominal discomfort. IV hydration should also be administered. RECOMMENDATIONS: Per above discussion and per orders written in the chart. Thank you for asking me to participate in the care of this patient. Simona Knott M.D. DR: SELWYN JOB#: [id number] CC:
[2018-09-08] VITALS: BP 110/75
[2018-09-08 04:00] VITALS: BP 107/63
--- NOTE | 2018-09-08 04:04 | NUR ---
NURSE NOTES: Patient noticed spotting and brown droplets in her urine, is anxious that it may be blood. Dr Solano and Dr Batres aware. Addendum: 09/08/18 at 0440 by Andrew Sy RN Dr Batres and Dr Solano both acknowledged. No new orders. Will consult OBGYN on staff.
--- NOTE | 2018-09-08 07:14 | NUR ---
HAND-OFF: Report given to MARLA Whitehead.
--- NOTE | 2018-09-08 07:14 | NUR ---
NURSE NOTES: Spoke to Dr Batres, made him aware of patient's plan to go AMA after morning antibiotics.
[2018-09-08 07:24] LABS: BASOPHILS % (AUTO) 1.1 % (0.0-2.0); EOSINOPHILS % (AUTO) 2.5 % (0.0-3.0); HEMATOCRIT 38.1 % (37.0-47.0); HEMOGLOBIN 12.6 G/DL (12.0-16.0); MEAN CORPUSCULAR VOLUME 83 FL (80-99); MONOCYTES % (AUTO) 8.9 % (1.0-10.0); NEUTROPHILS % (AUTO) 53.5 % (45.0-75.0); PLATELET COUNT 251 K/UL (150-450); RED BLOOD COUNT 4.57 M/UL (4.20-5.40); RED CELL DISTRIBUTION WIDTH 13.1 % (11.6-14.8); WHITE BLOOD COUNT 5.8 K/UL (4.8-10.8)
[2018-09-08 07:34] LABS: ALANINE AMINOTRANSFERASE 17 U/L (12-78); ALBUMIN 3.1 G/DL (3.4-5.0); ALBUMIN/GLOBULIN RATIO 0.9 (1.0-2.7); ALKALINE PHOSPHATASE 106 U/L (46-116); ANION GAP 12 mmol/L (5-15); ASPARTATE AMINO TRANSFERASE 15 U/L (15-37); BILIRUBIN,TOTAL 0.4 MG/DL (0.2-1.0); BLOOD UREA NITROGEN 7 mg/dL (7-18); CALCIUM 8.9 MG/DL (8.5-10.1); CARBON DIOXIDE 25 MMOL/L (21-32); CHLORIDE 105 MMOL/L (98-107); CREATININE 0.7 MG/DL (0.55-1.30); POTASSIUM 3.6 MMOL/L (3.5-5.1); SODIUM 142 MMOL/L (136-145)
--- NOTE | 2018-09-08 07:42 | NUR ---
NURSE NOTES: Received report from MARLA Lentz. Pt in bed, resting, talkative, no complaints of pain, pt asking about IV abx, discussed schedule for medications, bed in lowest position, call light within reach.
--- NOTE | 2018-09-08 07:46 | General Progress Note ---
Assessment/Plan Problem List: (1) Abdominal pain ICD Codes: R10.9 - Unspecified abdominal pain SNOMED: 25107908 (2) Pyelonephritis ICD Codes: N12 - Tubulo-interstitial nephritis, not specified as acute or chronic SNOMED: 85614655 (3) Lupus ICD Codes: M32.9 - Systemic lupus erythematosus, unspecified SNOMED: 389957927 Status: unchanged Assessment/Plan: abx pain control cbc bmp am Subjective Constitutional: Reports: weakness Allergies: Coded Allergies: MORPHINE (Verified Allergy, Intermediate, 09/07/18) All Systems: reviewed and negative except above Subjective sleepy calm Objective Last 24 Hour Vital Signs Date Time Temp Pulse Resp B/P (MAP) Pulse Ox O2 Delivery O2 Flow Rate FiO2 09/08/18 04:00 98.9 71 18 107/63 (78) 100 09/08/18 00:00 97.8 67 16 110/75 (87) 100 09/07/18 22:44 Room Air 09/07/18 20:00 98.3 79 18 117/77 (90) 100 09/07/18 16:00 97.5 72 18 103/78 (86) 100 09/07/18 13:54 Room Air 09/07/18 13:23 Room Air 09/07/18 12:52 Room Air 09/07/18 12:00 98.2 81 18 110/70 (83) 100 09/07/18 08:00 97.9 74 18 114/80 (91) 100 Intake and Output 09/07/18 09/08/18 19:00 07:00 Intake Total 745.0 ml Balance 745.0 ml Intake Oral 360 ml IV Total 385.0 ml # Voids 2 Laboratory Tests 09/07/18 15:50: Rheumatoid Factor Screen [Pending], Anti-Nuclear Antibody Screen [Pending], Anti -Double Strand DNA Antibody [Pending], Q Fever Phase I IgG Antibody [Pending], Q Fever Phase II IgG Antibody [Pending], Rickettsia IgG Ab (Omega Mt Fever) [ Pending], Rickettsia IgM Ab (Omega Mt Fever) [Pending] 09/07/18 19:55: Urine Color Pale yellow, Urine Appearance Clear, Urine pH 6.5, Urine Specific [place] 1.010, Urine Protein Negative, Urine Glucose (UA) Negative, Urine Ketones Negative, Urine Blood Negative, Urine Nitrite Negative, Urine Bilirubin Negative, Urine Urobilinogen Normal, Urine Leukocyte Esterase Negative, Urine RBC 0-2, Urine WBC 2-4, Urine Squamous Epithelial Cells Occasional, Urine Bacteria Occasional, Chlamydia trachomatis RNA [Pending], Neisseria gonorrhoeae RNA [Pending] 09/08/18 05:50: White Blood Count 5.8, Red Blood Count 4.57, Hemoglobin 12.6, Hematocrit 38.1, Mean Corpuscular Volume 83, Mean Corpuscular Hemoglobin 27.7, Mean Corpuscular Hemoglobin Concent 33.2, Red Cell Distribution Width 13.1, Platelet Count 251, Mean Platelet Volume 7.4, Neutrophils (%) (Auto) 53.5, Lymphocytes (%) (Auto) 34.0, Monocytes (%) (Auto) 8.9, Eosinophils (%) (Auto) 2.5, Basophils (%) (Auto ) 1.1, Sodium Level 142, Potassium Level 3.6, Chloride Level 105, Carbon Dioxide Level 25, Anion Gap 12, Blood Urea Nitrogen 7, Creatinine 0.7, Estimat Glomerular Filtration Rate > 60, Glucose Level 80, Calcium Level 8.9, Total Bilirubin 0.4, Aspartate Amino Transf (AST/SGOT) 15, Alanine Aminotransferase ( ALT/SGPT) 17, Alkaline Phosphatase 106, Total Protein 6.6, Albumin 3.1L, Globulin 3.5, Albumin/Globulin Ratio 0.9L, Rapid Plasma Reagin [Pending], HIV (1 &2) Antibody Rapid [Pending] Height (Feet): 5 Height (Inches): 11.00 Weight (Pounds): 130 General Appearance: lethargic EENT: normal ENT inspection Neck: normal alignment Cardiovascular: normal peripheral pulses, normal rate, regular rhythm Respiratory/Chest: chest wall non-tender, lungs clear, normal breath sounds Abdomen: normal bowel sounds, non tender, soft Extremities: normal inspection Edema: no edema noted Arm (L), no edema noted Arm (R), no edema noted Leg (L), no edema noted Leg (R), no edema noted Pedal (L), no edema noted Pedal (R), no edema noted Generalized Neurologic: motor weakness Skin: normal pigmentation, warm/dry Brian Solano DO Sep 08, 2018 07:46
[2018-09-08 08:00] VITALS: BP 116/75
[2018-09-08] MEDS: Cefepime HCl 2 GM in D5W 110 ML IV SCH (08:09)
[2018-09-08] MEDS: Heparin 5000 units/ml inj SUBQ SCH (08:09)
--- NOTE | 2018-09-08 08:14 | NUR ---
NURSE NOTES: Administered Am medications per orders, pt stating she will be leaving AMA after IV abx is finished. Discussed risk of leaving AMA in regards to abx, current bleeding issues, and plan of care. Pt stated, " I have to go because I am suppose to be moving out of my apartment today and I called management, but they will not let me staff longer." Pt stated understanding of risk of leaving AMA and benefits of staying in hospital. Pt is A/O x4
--- NOTE | 2018-09-08 09:50 | NUR ---
NURSE NOTES: Pt signed AMA form. IV removed, ID band removed. Pt is going to do bed bath and call an [employer]
--- NOTE | 2018-09-08 10:56 | NUR ---
NURSE NOTES: Pt left AMA to home. IV removed, ID band removed, pt A/Ox4, ambulatory, left via [employer]. Pt stated she will see her primary physician tomorrow
--- NOTE | 2018-09-08 16:30 | General Progress Note ---
Assessment/Plan Status: unchanged Assessment/Plan: Assessment - UTI - Abd pain Recommendations - push po - abx - d/c planning Subjective Allergies: Coded Allergies: MORPHINE (Verified Allergy, Intermediate, 09/07/18) Subjective Better abd pain improved for d/c today Objective Last 24 Hour Vital Signs Date Time Temp Pulse Resp B/P (MAP) Pulse Ox O2 Delivery O2 Flow Rate FiO2 09/08/18 09:00 Room Air 09/08/18 08:00 97.5 67 15 116/75 (89) 99 09/08/18 04:00 98.9 71 18 107/63 (78) 100 09/08/18 00:00 97.8 67 16 110/75 (87) 100 09/07/18 22:44 Room Air 09/07/18 20:00 98.3 79 18 117/77 (90) 100 Intake and Output 09/07/18 09/08/18 18:59 06:59 Intake Total 745.0 ml Balance 745.0 ml Intake Oral 360 ml IV Total 385.0 ml # Voids 2 Laboratory Tests 09/07/18 19:55: Urine Color Pale yellow, Urine Appearance Clear, Urine pH 6.5, Urine Specific Ruth 1.010, Urine Protein Negative, Urine Glucose (UA) Negative, Urine Ketones Negative, Urine Blood Negative, Urine Nitrite Negative, Urine Bilirubin Negative, Urine Urobilinogen Normal, Urine Leukocyte Esterase Negative, Urine RBC 0-2, Urine WBC 2-4, Urine Squamous Epithelial Cells Occasional, Urine Bacteria Occasional, Chlamydia trachomatis RNA [Pending], Neisseria gonorrhoeae RNA [Pending] 09/08/18 05:50: White Blood Count 5.8, Red Blood Count 4.57, Hemoglobin 12.6, Hematocrit 38.1, Mean Corpuscular Volume 83, Mean Corpuscular Hemoglobin 27.7, Mean Corpuscular Hemoglobin Concent 33.2, Red Cell Distribution Width 13.1, Platelet Count 251, Mean Platelet Volume 7.4, Neutrophils (%) (Auto) 53.5, Lymphocytes (%) (Auto) 34.0, Monocytes (%) (Auto) 8.9, Eosinophils (%) (Auto) 2.5, Basophils (%) (Auto ) 1.1, Sodium Level 142, Potassium Level 3.6, Chloride Level 105, Carbon Dioxide Level 25, Anion Gap 12, Blood Urea Nitrogen 7, Creatinine 0.7, Estimat Glomerular Filtration Rate > 60, Glucose Level 80, Calcium Level 8.9, Total Bilirubin 0.4, Aspartate Amino Transf (AST/SGOT) 15, Alanine Aminotransferase ( ALT/SGPT) 17, Alkaline Phosphatase 106, Total Protein 6.6, Albumin 3.1L, Globulin 3.5, Albumin/Globulin Ratio 0.9L, Rapid Plasma Reagin [Pending], HIV (1 &2) Antibody Rapid Negative Height (Feet): 5 Height (Inches): 11.00 Weight (Pounds): 130 Objective Thin WW NCAT supple CTA RRR abd soft ND no edema Simona Knott MD Sep 08, 2018 16:30
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
--- NOTE | 2018-09-11 16:43 | Cardiology Report ---
APPROVED REPORT EKG Measurement Heart [id number] Normal sinus rhythm Possible Left atrial enlargement Borderline ECG
== END 2018-09-08 10:40 | disposition left against medical advice (07) | DRG 463 ==
LOC: EMR 01:55 → 4E 02:10 → EDBEDREQ 06:03 → 4E 07:41
DX: N10 Acute pyelonephritis (principal); M32.9 Systemic lupus erythematosus, unspecified; Z86.711 Personal history of pulmonary embolism; Z87.820 Personal history of traumatic brain injury; E87.6 Hypokalemia; Z88.1 Allergy status to other antibiotic agents; F17.200 Nicotine dependence, unspecified, uncomplicated; R10.9 Unspecified abdominal pain; Z79.82 Long term (current) use of aspirin
CPT/HCPCS: 36415; 74177; 80053; 81001; 81003; 81025; 82550; 83605; 83690; 85025; 85610; 85651; 85730; 86039; 86140; 86225; 86431; 86592; 86703; 87040; 87070; 87086; 87491; 87590; 93005; 96361; 96365; 96375; 99285

== ENCOUNTER 2018-09-10 01:01 | Emergency (ER) | payer MEDICAID ==
[~2018-09-10] VITALS: Ht 180.3 cm; Wt 59.9 kg
[2018-09-10] MEDS ORDERED: NITROFURANTOIN100 M2 ORAL (01:24)
[2018-09-10] MEDS ORDERED: IBUPROFEN200 MG ORAL (01:24)
[2018-09-10] MEDS ORDERED: CLONAZEPAM1 MG PO (01:24)
[2018-09-10] MEDS ORDERED: ASPIR 8181 MG ORAL (01:24)
[2018-09-10 01:27] VITALS: BP 126/88
--- NOTE | 2018-09-10 01:34 | Emergency Room Report ---
History of Present Illness General Chief Complaint: Pain Source: Patient Present Illness [facility] This is a 33-year-old female with a history of lupus. She presents with chief complaint of reevaluation for kidney infection. She was admitted here for pyelonephritis. She signed out AMA because she has other stuff to do. She came back to be reevaluation. She still has some mild right abdominal pain. CT scan showed a hemorrhagic right ovarian cyst. There is mild bilateral perinephric stranding of undeterminated etiology which were negative. Lactic acid. No dysuria. No frequency or hematuria. Allergies: Coded Allergies: MORPHINE (Verified Allergy, Intermediate, 09/07/18) Patient History Past Medical History: see triage record, old chart reviewed Past Surgical History: other Pertinent Family History: none Social History: Denies: smoking Last Menstrual Period: 05/28 Now: No Immunizations: other Reviewed Nursing Documentation: PMH: Agreed; PSxH: Agreed Nursing Documentation-PMH Hx Cardiac Problems: Yes Hx Hypertension: Yes Hx Cancer: No Hx Gastrointestinal Problems: No Hx Cerebrovascular Accident: Yes - 2003 Hx Seizures: Yes - Dec 2015 Review of Systems Eye: Denies: eye pain, blurred vision ENT: Denies: ear pain, nose congestion, throat swelling Respiratory: Denies: cough, shortness of breath Cardiovascular: Denies: chest pain, palpitations Gastrointestinal: Denies: abdominal pain, diarrhea, nausea, vomiting Musculoskeletal: Denies: back pain, joint pain Skin: Denies: rash Neurological: Denies: headache, numbness Endocrine: Denies: increased thirst, increased urine Hematologic/Lymphatic: Denies: easy bruising All Other Systems: negative except mentioned in HPI Physical Exam Vital Signs Date Time Temp Pulse Resp B/P (MAP) Pulse Ox O2 Delivery O2 Flow Rate FiO2 09/10/18 01:06 98.6 88 18 126/88 (101) 98 Room Air Vitals normal Sp02 EP Interpretation: reviewed, normal General Appearance: well appearing, no apparent distress, alert Head: normocephalic, atraumatic Eyes: bilateral eye PERRL, bilateral eye EOMI ENT: hearing grossly normal, normal pharynx Neck: full range of motion, supple, no meningismus Respiratory: chest non-tender, lungs clear, normal breath sounds Cardiovascular #1: regular rate, rhythm, no murmur Gastrointestinal: normal bowel sounds, non tender, no mass, no organomegaly, no bruit, non-distended Musculoskeletal: back normal, gait/station normal, normal range of motion Psychiatric: mood/affect normal Medical Decision Making Diagnostic Impression: Primary Impression: Abdominal pain Qualified Codes: R10.84 - Generalized abdominal pain ER Course Patient presents with abdominal pain. This may be secondary to hemorrhagic cyst. Urine culture has been negative. Since she has been on 2 3 days of antibiotics, will finish up her course of antibiotics. No evidence of acute abdomen. Last Vital Signs Date Time Temp Pulse Resp B/P (MAP) Pulse Ox O2 Delivery O2 Flow Rate FiO2 09/10/18 01:27 98.6 88 18 126/88 98 Room Air Status: improved Disposition: HOME, SELF-CARE Condition: Stable Scripts Cephalexin* (KEFLEX*) 500 Mg Capsule 500 MG ORAL TID, #15 CAP Prov: Hussein Yusuf MD 09/10/18 Additional Instructions: Follow-up with your doctor in 7 days. Return if symptoms worsen. Hussein Yusuf MD Sep 10, 2018 01:33
[2018-09-10 01:36] LABS: APPEARANCE,URINE CLEAR; BILIRUBIN, URINE NEGATIVE (NEGATIVE); COLOR,URINE PALE YELLOW; GLUCOSE, URINE (UA) NEGATIVE (NEGATIVE); KETONES,URINE NEGATIVE (NEGATIVE); LEUKOCYTE ESTERASE ,URINE 1+ (NEGATIVE); NITRITE,URINE NEGATIVE (NEGATIVE); PH,URINE 6 (4.5-8.0); PROTEIN,URINE 3+ (NEGATIVE); UROBILINOGEN,URINE NORMAL MG/DL (0.0-1.0)
[2018-09-10] MEDS ORDERED: CEPHALEXIN500 MG ORAL (02:11)
[2018-09-10 02:24] VITALS: BP 126/88
== END 2018-09-10 02:24 | disposition home or self-care (01) ==
LOC: EMR 01:30
DX: R10.84 Generalized abdominal pain (principal); Z88.6 Allergy status to analgesic agent; I10 Essential (primary) hypertension; Z86.73 Personal history of transient ischemic attack (TIA), and cerebral infarction without residual deficits; G40.909 Epilepsy, unspecified, not intractable, without status epilepticus
CPT/HCPCS: 81003; 99282